=== PATIENT | male | born 1955 | race Caucasian/White ===

== ENCOUNTER 2016-06-06 13:07 | Emergency (ER) | payer OTHER ==
[2016-09-08] MEDS ORDERED: NITROQUICK0.4 MG SL (21:25)
== END 2016-06-06 14:00 | disposition home or self-care (01) ==
LOC: ER 13:07
DX: M25.561 Pain in right knee (principal); E78.5 Hyperlipidemia, unspecified; I10 Essential (primary) hypertension; K21.9 Gastro-esophageal reflux disease without esophagitis; E11.9 Type 2 diabetes mellitus without complications; Z88.8 Allergy status to other drugs, medicaments and biological substances; Z88.5 Allergy status to narcotic agent
CPT/HCPCS: 99283

== ENCOUNTER 2016-08-10 13:43 | Observation (INO) | payer OTHER ==
--- NOTE | ~2016-08-10 | HP ---
History And Physical [place] [id number] [facility] [place]. [address] NAME: CELINE LOUIS : 57 STATUS : ADM Spencer PAT#: [id number] AGE: 60 ADM/REG DATE : 08/10/16 MR#: [id number] REPORT SERV DATE: 08/10/16 DICTATED BY: TAMIA CARRILLO DATE: 08/10/16 REPORT STATUS : Draft TRANSCRIBED BY: MODL DATE: 08/10/16 DATE OF ADMISSION: 08/10/2016 [facility] CHIEF COMPLAINT: Chest pain and nausea. HISTORY OF PRESENT ILLNESS: A 60-year-old white gentleman, who is visiting here from [facility], arrived this past Saturday and plans to be here for two weeks. The gentleman has a past history of coronary artery disease, reportedly has three stents to unknown vessels placed in [facility] in 2005 and 2008. This morning around 11 o'clock, he was playing with his grand kids and developed chest pain and nausea. The chest pain radiated to his left arm and jaw. He states that he "went down, but did not loose consciousness". He reports associated shortness of breath, nausea, diaphoresis, and dizziness. Denies any belching. At its most intense, he rated the chest pain at 10/10. At time of interview in the ER, he rates it at 3/10. States, the episodes lasted just a couple of minutes in duration. He has taken a total of four nitroglycerins prior to coming to the hospital. Each eased his chest pain, but did not fully relieve it. He took the fourth nitroglycerin while eating in the emergency room. He went out to his car and took the fourth, he is uncertain if these symptoms are similar to previous cardiac events. The patient denies any personal history of myocardial infarction, stroke, DVT, or pulmonary embolus. He is uncertain what vessels his stents have been placed and we will attempt to get records from his PCP in [facility] and his supposedly has stent cards. The patient denies any recent fever or chills, no palpitations, no syncopal episodes. Denies PND or orthopnea. PAST MEDICAL HISTORY: 1. CAD;. a. Denies PR. b. Three stents to unknown vessels, 2005 and 2008 in [facility]. 2. Hypertension. 3. Dyslipidemia. 4. AODM, poorly managed. 5. Arthritis. 6. History of lower GI bleed, 2016, no transfusion required. PAST SURGICAL HISTORY: Arthroscopic repair of right knee. SOCIAL HISTORY: He is with two children. 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 Does not have an exercise routine. Denies tobacco, alcohol, or illicits. FAMILY HISTORY: Mother with a heart attack in her 40s, at 73. Father with heart attack in his 50s, at 75. Brother with diabetes. REVIEW OF SYSTEMS: History And Physical [address] [place]. [address] NAME: CELINE LOUIS : 57 STATUS : ADM Spencer PAT#: [id number] AGE: 60 ADM/REG DATE : 08/10/16 MR#: [id number] REPORT SERV DATE: 08/10/16 DICTATED BY: TAMIA CARRILLO DATE: 08/10/16 REPORT STATUS : Draft TRANSCRIBED BY: GLORIA DATE: 08/10/16 A 14-point review of systems performed, significant for HPI including the patient reports most recent blood sugar which he checks inconsistently of 300 plus, possible hemoglobin A1c slightly less than 10. He states he does have a glucometer and supplies, although he does not check his blood sugar routinely and states he has been off metformin for approximately three months due to nausea and vomiting. Otherwise, complete review of systems obtained and negative. ALLERGIES: PER THE PATIENT'S REPORT ALLERGY TO REGLAN, AMBIEN, DEMEROL, AND IBUPROFEN. HOME MEDICATIONS: Aspirin 81 mg daily, Lopressor 25 mg twice daily, and metformin has not taken in greater than three months, atorvastatin 40 mg nightly, Claritin p.r.n., tramadol 100 mg q.8 hours p.r.n., and nitroglycerin sublingual. PHYSICAL EXAMINATION: VITAL SIGNS: Blood pressure 134/81, pulse 97, respirations 20, temperature 98.0, O2 saturation 97% on room air. Height 6 feet 0 inches, weight 220 pounds (as stated). GENERAL: Cooperative, in no apparent distress. Poor dentition. HEENT: Pupils 2 mm, sclera nonicteric. Nares patent. Moist mucous membranes. No xanthelasma. NECK: Trachea midline, no thyromegaly. No JVD. No bruits. LYMPH: No cervical lymphadenopathy. No supraclavicular lymphadenopathy. RESPIRATORY: Unlabored respirations. Breath sounds clear bilaterally to posterior auscultation. No wheezes or rhonchi. CARDIOVASCULAR: Regular rate. No murmur, rub or gallop appreciated. EXTREMITIES: Without edema. Pulses 2+ bilaterally. ABDOMEN: Soft, nontender, nondistended, normal bowel sounds auscultated throughout. No organomegaly. SKIN: Warm, dry extremities. No pallor, or cyanosis. PSYCHIATRIC: Appropriate affect. Alert, oriented x3. LABORATORY DATA: Troponin less than 0.02, second and third pending. Potassium 4.2, BUN 15, creatinine 1.27, glucose 413, magnesium 1.8. BNP less than 2. WBC 4.6, hemoglobin 12.7, hematocrit 37.6, platelet count 137,000. EKG, sinus rhythm. ASSESSMENT AND PLAN: 1. Substernal chest pain in a patient with multiple risk factors of medical noncompliance. The patient will be observed in the CPOU to rule out myocardial infarction with serial enzymes and serial EKGs. If all three troponins negative and no dynamic EKG changes, the patient will be held n.p.o. for MPI in the morning. The patient will be discharged home if low risk, no ischemia. If anything suggestive of ischemia, Cardiology referral will be initiated. Otherwise, the patient will be asked to follow up with PCP and return to [facility] in one to two weeks. 2. Coronary artery disease. Continue home medications. Request cardiac records from PCP in [facility] and review stent cards once arrives. 3. Hypertension. Monitor blood pressure and continue home medications. 4. Adult-onset diabetes mellitus. Medical noncompliance. Level 2 sliding scale correction. Check a hemoglobin A1c. Hospitalist consult to assist. tobacco educator History And Physical [address] [address] NAME: CELINE LOUIS : 57 STATUS : ADM Spencer PAT#: [id number] AGE: 60 ADM/REG DATE : 08/10/16 MR#: [id number] REPORT SERV DATE: 08/10/16 DICTATED BY: TAMIA CARRILLO DATE: 08/10/16 REPORT STATUS : Draft TRANSCRIBED BY: GLORIA DATE: 08/10/16 if available on late Saturday afternoon. 5. Dyslipidemia. Continue statin. 6. Medical noncompliance. Takes no medications for diabetes. Reports metformin intolerant due to nausea and vomiting. Does not check blood sugar consistently. Reports, he has glucometer and supplies. Again, we will ask hospitalist and/or parent educator to assist. 7. The patient will be seen by rounding grove worker this evening. Further recommendations forthcoming. INES/GLORIA Tamia Carrillo MSN, DIRECTOR PRODUCT MANAGEMENT-BC / [id number] CC: FIONA Katz, DIRECTOR PRODUCT MANAGEMENT-BC
--- NOTE | ~2016-08-10 | HP ---
History And Physical [facility] [address] [facility] [place]. [address] NAME: CELINE LOUIS : 57 STATUS : ADM Spencer PAT#: [id number] AGE: 60 ADM/REG DATE : 08/10/16 MR#: [id number] REPORT SERV DATE: 08/10/16 DICTATED BY: JESSEE MONTAGUE DATE: 08/10/16 REPORT STATUS : Draft TRANSCRIBED BY: MODL DATE: 08/10/16 DATE OF ADMISSION: 08/10/2016 HISTORY AND PHYSICAL CONSULTATION. REASON FOR CONSULTATION: Diabetic management. HISTORY OF PRESENT ILLNESS: A 60-year-old white male who is visiting from [place], [place]. Reports that while playing with his grandkids today he had an acute onset of chest pain radiating to his left arm and jaw that was not relieved with rest and he took nitroglycerin as well, presented to the [facility] Emergency Room with this complaint, was admitted by Cardiology Service and Chest Pain Observation Unit for further workup and Hospitalist Service has been consulted for diabetes management. He states that this is very similar to prior episodes of chest pain that he has had as he has a significant history of multivessel coronary disease and prior cardiac stents. In reference to his diabetes, he states that he stopped taking his metformin approximately three months ago and has since given up in trying to control his diabetes and that he was going to allow god to control his diabetes for him, but he also stopped checking his blood sugars and has not had any followup since then in regard to his diabetes. Blood sugar upon presentation to the hospital was found to be 413, and he was given some treatment in the ER here and a subsequent check of this glucose after treatment down to 116, and most recently, it is 222 as of 1652 hours today. 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 He is . Has eight grandkids. Negative tobacco and a remote history of alcohol. Primary care is Dr. Salomón Islas in [place], [place]. PAST MEDICAL HISTORY: Includes multivessel coronary disease with stenting in 2005 and 2008, hypertension, dyslipidemia, diabetes type 2, arthritis, and history of lower GI bleed in 2016. SURGICAL HISTORY: He had a right knee arthroplasty. FAMILY HISTORY: Mother with diabetes and NM, . Dad with diabetes and NM, . He revealed that he also was having some GI upset with his metformin dosage that he was taking and that his primary care had recently placed him on insulin; however, he has not started this and does not know the type or strength of insulin as he has not started this yet. REVIEW OF SYSTEMS: Negative ten points except for pertinents mentioned in the above HPI. PHYSICAL EXAMINATION: VITAL SIGNS: Temperature of 98.1, pulse rate 69, respiratory rate 12, blood pressure 133/69. GENERAL: He is alert and oriented x3 with no focal deficits. He is cooperative and awake in no acute distress for the exam. No appreciable lymphadenopathy or JVD noted. History And Physical [address] [address] NAME: CELINE LOUIS : 57 STATUS : ADM Spencer PAT#: [id number] AGE: 60 ADM/REG DATE : 08/10/16 MR#: [id number] REPORT SERV DATE: 08/10/16 DICTATED BY: JESSEE MONTAGUE DATE: 08/10/16 REPORT STATUS : Draft TRANSCRIBED BY: MODJames DATE: 08/10/16 LUNGS: Clear to auscultation bilaterally. Normal respiratory effort on room air. Saturating 97%. CARDIOVASCULAR: No murmurs, rubs, or gallops. Regular rate and rhythm. ABDOMEN: Soft, nontender with active bowel sounds. He has no appreciable edema. Normal distal pulses in lower extremities. HEENT: PERRLA is noted. Sclerae are clear. SKIN: Otherwise, skin is warm and dry. LAB WORK: 140 sodium, potassium 4.2, a BUN of 15, creatinine 1.27. White blood cells 4.6, hemoglobin 12.7, hematocrit 37.6, negative troponins x2 so far and a BNP of less than 2.0. ASSESSMENT: 1. Diabetes type 2 with hyperglycemia with known noncompliance with medical therapy. 2. Chest pain with history of coronary disease. 3. Hyperlipidemia. 4. Hypertension. We will plan on utilizing Levemir and NovoLog insulin for control of blood sugars in the interim and will hopefully transition to p.o. antiglycemics with the possibility of resuming his metformin, but I have also discussed other oral antidiabetics such as Januvia, more to come on this. He will have further cardiac enzyme trending and plan for nuclear stress test in the a.m. and further cardiac workup pending that test. I prefer adding an ELLE inhibitor to his regimen given his history of diabetes and hypertension. He is on metoprolol. We will follow his lab work closely. I have updated the patient at bedside with the plan. He is in agreement with this going forward. I appreciate the opportunity to participate in the care of this patient. We will follow along with you. CSC/MODL Jessee Montague NP / [id number] CC: Tamia Seay, MSN, SERVICE WORKER HELPER-BC Salomón Islas
[2016-08-10 12:10] LABS: BASOPHILS 0.2 %; BASOPHILS ABSOLUTE 0.01 10/3/uL (0.0-0.16); EOSINOPHILS 3.9 %; EOSINOPHILS ABSOLUTE 0.18 10/3/uL (0.0-0.53); ER CBC TAT 0 Hrs 05 Mins; HEMATOCRIT 37.6 % (40.0-51.0); HEMOGLOBIN 12.7 g/dL (13.6-17.8); IMMATURE GRANULOCYTES 0.2 %; IMMATURE GRANULOCYTES ABSOLUTE 0.01 10/3/uL (0.0-0.11); LYMPHOCYTES 26.2 %; LYMPHOCYTES ABSOLUTE 1.21 10/3/uL (0.67-4.30); MEAN CORPUS HGB CONC 33.8 g/dL (32.0-36.0); MEAN CORPUSCULAR HEMOGLOB 25.9 pg (26.0-34.0); MEAN CORPUSCULAR VOLUME 76.6 fL (80-100); MEAN PLATELET VOLUME 9.6 fL (9.2-13.0); MONOCYTES ABSOLUTE 0.23 10/3/uL (0.21-1.20); NEUTROPHILS 64.5 %; NEUTROPHILS ABSOLUTE 2.97 10/3/uL (2.02-8.40); PLATELET COUNT 137 10/3/uL (150-400); RED CELL COUNT 4.91 10/6/uL (4.7-6.1); WHITE BLOOD CELLS 4.6 10/3/uL (4.5-10.5)
[2016-08-10 12:11] LABS: MANUAL DIFF NO %
[2016-08-10 12:23] LABS: INTERNATIONAL NORMAL RATI 1.1 UNITS (-); PARTIAL THROMBO TIME 26.2 SEC (22.5-37.2); PROTIME (NOT ORD) 13.6 SEC (12.0-14.5)
[2016-08-10 12:27] LABS: BUN (BLOOD UREA NITROGEN) 15 MG/DL (6-23); CHEST PAIN PROFILE TAT 0 Hrs 22 Mins; CHLORIDE, SERUM 107 MMOL/L (96-112); CO2 (CARBON DIOXIDE) 23 MMOL/L (24-34); CREATININE 1.27 MG/DL (0.70-1.30); GFR AFRICAN AMERICAN 71 ML/MIN (>=60); GFR NON AFRICAN AMERICAN 61 ML/MIN (>=60); POTASSIUM, SERUM 4.2 MMOL/L (3.5-5.3); SODIUM, SERUM 140 MMOL/L (135-148); TROPONIN I <0.02 NG/ML (<0.05)
[2016-08-10 12:29] LABS: GLUCOSE, SERUM 413 MG/DL (60-99)
[2016-08-10 13:49] LABS: B NATRIURETIC PEPTIDE (BNP) < 2.0 PG/ML (< 100.0)
[2016-08-10] MEDS ORDERED: ULTRAM50 PO (14:41)
[2016-08-10] MEDS ORDERED: GLUCOPHAGE1000 MG PO (14:41)
[2016-08-10] MEDS ORDERED: ZOCOR40 PO (14:42)
[2016-08-10] MEDS ORDERED: LOP25 PO (14:43)
[2016-08-10] MEDS ORDERED: PROTONIX PO (14:43)
[2016-08-10] MEDS ORDERED: CLARIT10 PO (14:44)
[2016-08-10] MEDS ORDERED: HALF81 PO (14:44)
[2016-08-10] MEDS ORDERED: SUPER BETA PROSTATE PO (14:46)
[2016-08-10 21:58] LABS: GLYCOHEMOGLOBIN (HbA1c) 8.9 % (4.7-6.1)
[2016-09-08] MEDS ORDERED: NITROQUICK0.4 MG SL (21:25)
== END 2016-08-11 07:56 | disposition left against medical advice (07) ==
LOC: ER 13:43 → CDU1 14:44
PROVIDERS: Emergency Medicine; Nurse Practitioner Family
DX: R07.2 Precordial pain (principal); E11.65 Type 2 diabetes mellitus with hyperglycemia; I25.10 Atherosclerotic heart disease of native coronary artery without angina pectoris; E78.5 Hyperlipidemia, unspecified; I10 Essential (primary) hypertension; M19.90 Unspecified osteoarthritis, unspecified site; Z95.5 Presence of coronary angioplasty implant and graft; Z98.890 Other specified postprocedural states; Z79.899 Other long term (current) drug therapy
CPT/HCPCS: 71020; 80048; 82962; 83036; 83735; 83880; 84484; 85025; 85610; 85730; 93005; 96374; 96375; 96376; 99285; A9270-GY; G0378; J2405

== ENCOUNTER 2016-11-13 18:14 | Observation (INO) | payer OTHER ==
[~2016-11-13] VITALS: Ht 188 cm; Wt 99.1 kg
--- NOTE | ~2016-11-13 | HP ---
History And Physical [place] [address] [facility] [place]. [address] NAME: CELINE LOUIS JR : 57 STATUS : ADM Spencer PAT#: [id number] AGE: 60 ADM/REG DATE : 11/13/16 MR#: [id number] REPORT SERV DATE: 11/14/16 DICTATED BY: TATYANA CARRILLO DATE: 11/14/16 REPORT STATUS : Draft TRANSCRIBED BY: MODJames DATE: 11/14/16 DATE OF ADMISSION: 11/13/2016 PRIMARY CARE PROVIDER: Dr. Islas at [place], [place]. BEAUTY CULTURIST: None currently. CHIEF COMPLAINT: Chest pain. HISTORY OF PRESENT ILLNESS: This is a 60-year-old white male with known history of CAD, status post three stents to unknown vessels in 2005 and 2008 performed in [place], [place]. The patient is visiting here from [place] as he has done in the past. He states that on 11/13/2016 around 1630 hours, he was playing with the dog and he developed chest pain that radiated to his left arm and into his neck. He rated it a 10/10. At the time of interview in the [facility], he rates it a 4/10. He states he took three nitroglycerin, full-dose aspirin, and Tylenol. The nitroglycerin eased his pain, but it has reoccurred. He reports associated diaphoresis and dizziness. He denies shortness of breath, nausea, or belching. When asked how long the pain stays, he states "I can't say." He reports no episodes for two to three months, although records indicate he was at [facility] in 08/2016 and left AMA prior to any stress testing. He then in 09/2016 went to the [facility] and seemingly he had rest images only done and left AMA from that facility. The patient states that he will not be able to undergo any stress testing if he has any sort of chest pain. He currently rates his chest pain a 4/10. The patient denies any personal history of myocardial infarction, stroke, DVT, or pulmonary embolus. The patient denies any recent fever or chills. No palpitations. No syncopal events. Denies PND or orthopnea. PAST MEDICAL HISTORY: 1. CAD. a. Status post three stents to unknown vessels in 2005 and 2008 in [facility] (no stent cards available). 2. Hypertension. 3. Dyslipidemia. 4. AODM, poorly managed. 5. Medical noncompliance. 6. Arthritis. 7. Positive family history for early CAD. PAST SURGICAL HISTORY: Arthroscopic repair of right knee. SOCIAL HISTORY: He is with two children. 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 He does not have an exercise routine. He denies tobacco, alcohol, or illicits. FAMILY HISTORY: Mother with a heart attack in her 40s, at 73. Father with a heart attack in his 50s, at 75. Brother with diabetes. History And Physical [address] [address] NAME: CELINE LOUIS JR : 57 STATUS : ADM Spencer PAT#: [id number] AGE: 60 ADM/REG DATE : 11/13/16 MR#: [id number] REPORT SERV DATE: 11/14/16 DICTATED BY: TATYANA CARRILLO DATE: 11/14/16 REPORT STATUS : Draft TRANSCRIBED BY: GLORIA DATE: 11/14/16 REVIEW OF SYSTEMS: A 14-point review of systems is performed, significant for HPI, including home blood sugars are approximately 250 with recent increase in his metformin up to 1000 mg twice daily. Otherwise, complete review of systems is obtained and negative. ALLERGIES: TO IV DYE. REGLAN, ITCHY AND NERVOUS. LATEX, RASH. IBUPROFEN, BLEEDING ULCER. AMBIEN, SLEEP WALKING. DEMEROL ITCHING AND AGITATED. HOME MEDICATIONS: Aspirin 81 mg daily, atorvastatin 40 mg nightly, Glucophage 1000 mg twice daily, metoprolol tartrate 25 mg twice daily, Protonix 40 mg nightly, Ultram 100 mg q.8 hours p.r.n., gabapentin 100 mg t.i.d. PHYSICAL EXAMINATION: BLOOD PRESSURE: 102/58, PULSE: 61, RESPIRATORY RATE: 20, TEMPERATURE: 96.8, O2 saturation 98% on room air. GENERAL: Cooperative, in no apparent distress. HEENT: Pupils 2 mm, sclera nonicteric. Nares patent. Moist mucous membranes. No xanthelasma. NECK: Trachea midline, no thyromegaly. No JVD. No bruits. LYMPH: No cervical lymphadenopathy. No supraclavicular lymphadenopathy. RESPIRATORY: Unlabored respirations. Breath sounds clear bilaterally to posterior auscultation. No wheezes or rhonchi. CARDIOVASCULAR: Regular rate. No murmur, rub or gallop appreciated. Extremities without edema. Pulses 2+ bilaterally. ABDOMEN: Soft, nontender, nondistended, normal bowel sounds auscultated throughout. No organomegaly. SKIN: Warm, dry extremities. No pallor, or cyanosis. PSYCHIATRIC: Appropriate affect. Alert, oriented x3. LABORATORY DATA: Troponin less than 0.02 x3. Potassium 4.3, BUN 20, creatinine 1.40 (previously 1.2), glucose 316, magnesium 2.1. Hemoglobin A1c on 09/09/2016 was 8.5. WBC 6.8, hemoglobin 13.1, hematocrit 40.5, and platelet count 164,000. IMAGING: EKG: Sinus rhythm. Echo in 09/2016: EF 62%. MPI in 09/2016: Rest images only, left AMA from [facility]. ASSESSMENT AND PLAN: 1. Chest pain in a patient with multiple risk factors and medical noncompliance, visiting here from [place], [place]. The patient has been observed in the CPOU overnight to rule out myocardial infarction with three sets of cardiac markers negative. EKG appears stable. N.p.o. for MPI today if the patient will agree, home if negative study. If anything suggestive of ischemia, Cardiology referral will be initiated, otherwise, the patient has asked to identify a local PCP. If he is going to be here for any length of time versus followup with his PCP in [place], [place], the patient History And Physical [address] [address] NAME: HERIBERTOCELINE : 57 STATUS : ADM Spencer PAT#: [id number] AGE: 60 ADM/REG DATE : 11/13/16 MR#: [id number] REPORT SERV DATE: 11/14/16 DICTATED BY: TATYANA CARRILLO DATE: 11/14/16 REPORT STATUS : Draft TRANSCRIBED BY: GLORIA DATE: 11/14/16 states that he may be leaving tomorrow or in the next week. 2. Coronary artery disease, continue home medications. 3. Hypertension, monitor blood pressure and continue home medications. 4. Dyslipidemia, statin. 5. Adult-onset diabetes mellitus, poorly managed. The patient has been seen by a health educator and Hospitalist Service on previous admissions, medical noncompliance, he states he has sufficient medication and supplies. Most recent hemoglobin A1c was 8.5 in 09/2016. A lengthy discussion with the patient regarding dietary compliance, exercise routine, and close followup and management of his diabetes to achieve a goal hemoglobin A1c of less than 7. The patient is somewhat dismissive and seemingly uninterested in pursuing this conversation. 6. No local PCP. The patient is instructed to name a PCP for followup if he chooses to remain in the [facility] area versus followup in [place] with Dr. Islas in one to two weeks after discharge. INES/GLORIA FIONA Katz, MOVING WORKER-BC / [id number] CC: FIONA Katz, MOVING WORKER-BC
[~2016-11-13 18:14] MED LIST: CLARIT10 PO; GLUCOPHAGE1000 MG PO; HALF81 PO; LOP25 PO; NITROQUICK0.4 MG SL; PROTONIX PO; SUPER BETA PROSTATE PO; ULTRAM50 PO; ZOCOR40 PO
[2016-11-13 21:01] LABS: BASOPHILS 0.3 %; BASOPHILS ABSOLUTE 0.02 10/3/uL (0.0-0.16); EOSINOPHILS 2.5 %; EOSINOPHILS ABSOLUTE 0.17 10/3/uL (0.0-0.53); ER CBC TAT 0 Hrs 05 Mins; HEMOGLOBIN 13.1 g/dL (13.6-17.8); IMMATURE GRANULOCYTES 0.1 %; IMMATURE GRANULOCYTES ABSOLUTE 0.01 10/3/uL (0.0-0.11); LYMPHOCYTES 23.8 %; LYMPHOCYTES ABSOLUTE 1.61 10/3/uL (0.67-4.30); MEAN CORPUS HGB CONC 32.3 g/dL (32.0-36.0); MEAN CORPUSCULAR HEMOGLOB 23.6 pg (26.0-34.0); MEAN PLATELET VOLUME 10.6 fL (9.2-13.0); MONOCYTES 5.5 %; MONOCYTES ABSOLUTE 0.37 10/3/uL (0.21-1.20); NEUTROPHILS 67.8 %; NEUTROPHILS ABSOLUTE 4.59 10/3/uL (2.02-8.40); PLATELET COUNT 164 10/3/uL (150-400); RBC DISTRIBUTION WIDTH 13.2 % (12.0-16.0); WHITE BLOOD CELLS 6.8 10/3/uL (4.5-10.5)
[2016-11-13 21:04] LABS: HEMATOCRIT 40.5 % (40.0-51.0); MANUAL DIFF NO %; RED CELL COUNT 5.55 10/6/uL (4.7-6.1)
[2016-11-13] MEDS ORDERED: GLUCPH PO (21:07)
[2016-11-13] MEDS ORDERED: ULTRAM50 PO (21:07)
[2016-11-13] MEDS ORDERED: LIPITOR40 PO (21:08)
[2016-11-13] MEDS ORDERED: ASAB PO (21:08)
[2016-11-13] MEDS ORDERED: LOP25 PO (21:08)
[2016-11-13] MEDS ORDERED: PROTONIX PO (21:08)
[2016-11-13 21:10] LABS: PARTIAL THROMBO TIME 25.9 SEC (22.5-37.2); PROTIME (NOT ORD) 13.1 SEC (12.0-14.5)
[2016-11-13 21:16] LABS: BUN (BLOOD UREA NITROGEN) 20 MG/DL (6-23); CALCIUM, SERUM 8.7 MG/DL (8.5-10.4); CHEST PAIN PROFILE TAT 0 Hrs 20 Mins; CHLORIDE, SERUM 103 MMOL/L (96-112); CO2 (CARBON DIOXIDE) 26 MMOL/L (24-34); GFR AFRICAN AMERICAN 63 ML/MIN (>=60); GFR NON AFRICAN AMERICAN 55 ML/MIN (>=60); GLUCOSE, SERUM 316 MG/DL (60-99); POTASSIUM, SERUM 4.3 MMOL/L (3.5-5.3); SODIUM, SERUM 136 MMOL/L (135-148); TROPONIN I <0.02 NG/ML (<0.05)
[2016-11-14] MEDS ORDERED: NEUR100 PO (12:41)
[2016-11-14 16:56] LABS: MICROCYTES 1+ (5-10/OIF) (0-5/OIF); TEARDROP SHAPED RBCS OCC (0-2/OIF)
[2016-11-14 16:57] LABS: PLATELET ESTIMATE ADQ (ADEQUATE); VACUOLATED NEUTROPHILES OCC
== END 2016-11-14 16:11 | disposition home or self-care (01) ==
LOC: ER 18:14 → CDU2 21:39 → CDU1 21:39 → CDU2 21:44
PROVIDERS: Hospitalist
DX: R07.9 Chest pain, unspecified (principal); I25.10 Atherosclerotic heart disease of native coronary artery without angina pectoris; I10 Essential (primary) hypertension; E78.5 Hyperlipidemia, unspecified; E11.9 Type 2 diabetes mellitus without complications; M19.90 Unspecified osteoarthritis, unspecified site; Z98.890 Other specified postprocedural states; Z91.040 Latex allergy status; Z88.8 Allergy status to other drugs, medicaments and biological substances; Z79.82 Long term (current) use of aspirin; Z79.899 Other long term (current) drug therapy
CPT/HCPCS: 71020; 80048; 82962; 83735; 84484; 85025; 85610; 85730; 93005; 96374; 96376; 99285; A9270-GY; G0378; J2405